=== PATIENT | female | born 2005 | race Caucasian/White ===

== ENCOUNTER 2024-09-28 09:46 | Emergency (ER) | payer MEDICAID, SELFPAY ==
[2024-09-28 10:22] VITALS: BP 98/61; PULSE 76; RESP 18; TEMP 36.9; O2SAT 100; BMI 30.4
--- NOTE | 2024-09-28 12:01 | XR_ITS ---
Examination: PA lateral chest 2 views Technique: Upright PA lateral chest 2 views Exam date and time: September 28, 2024 1240 hrs. Indications: Dizziness episodes with syncope today Findings: Normal heart size Lungs are clear. The osseous structures are intact Impression: No active disease, no aspiration pneumonia
--- NOTE | 2024-09-28 12:01 | EKG_ITS ---
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
--- NOTE | 2024-09-28 12:01 | XR_ITS ---
Examination: CT brain head without contrast. 2-D sagittal coronal reconstructions Date and time of exam:September 28, 2024 at 12:29 PM Indications: Patient fell this morning with injury to the head, followed by head pain dizziness CTDI: vol (mGy):47.2 DLP: (mGycm):908 Technique: Multiple CT axial sections of the brain have been obtained, 5 mm slice thickness. Contrast has not been administered. 2-D sagittal, coronal reconstructions have been obtained Low dose protocols were performed. One or more of the following dose reduction techniques were used; automated exposure control, adjustment of the mA and/or KV according to patient size, use of iterative reconstruction technique. Findings: No significant ventricular enlargement. Intra-axial or extra-axial hemorrhage density is not seen. No mass effect or midline shift Basal cisterns are not remarkable. Fourth ventricle is midline. Cranial vault intact. Impression: Negative for acute hemorrhage, mass effect or midline shift Advise clinical correlation and follow-up accordingly
--- NOTE | 2024-09-28 12:01 | XR_ITS ---
Examination: Shoulder,left, 3 views Technique: Shoulder AP internal rotation, AP external rotation, Y view shoulder, 3 views Exam date and time :September 28, 2024 1240 hrs. Indications: Injury to the shoulder today, shoulder pain Findings: No shoulder fracture or dislocation No opaque foreign body Impression: No shoulder fracture or dislocation
--- NOTE | 2024-09-28 12:03 | EDRME_ITS ---
Rapid Medical Screening Exam [facility] Arrival date/time: 09/28/24 09:46 This is a 19-year-old female that comes in with complaints of dizziness and syncopal episode that happened prior to arrival. Patient was brought in by ambulance per patient she had just finished eating cereal. And stood up and felt dizzy. Patient states that she was found on the floor by mother. Per patient she was out for 10 seconds. Patient has some shortness of breath at this time and complains of left shoulder pain. Patient denies fever, vomiting, diarrhea, abdominal pain. Patient states she feels a little nauseous and a little dizzy at this time. Patient has a history of elbow surgery and has been told her blood pressure is on the higher side. I have greeted and performed a focused initial assessment of this patient. Initial appropriate labs ordered at this time. A comprehensive ED assessment and evaluation of the patient and analysis of all test and completion of medical decision making process will be conducted by additional ED provider. Chief Complaint: Syncope / Near Syncope Time Seen by Provider: 09/28/24 11:57 Vital signs: Vital Signs Temperature 98.5 F 09/28/24 10:22 Pulse Rate 76 09/28/24 10:22 Respiratory Rate 18 09/28/24 10:22 Blood Pressure 98/61 09/28/24 10:22 Pulse Oximetry (%) 100 09/28/24 10:22 Oxygen Delivery Method Room Air 09/28/24 10:22
[2024-09-28 14:10] LABS: Basophils # (Auto) 0.1 Thou/mm3 (0.0-0.2); Basophils % (Auto) 1 % (0-2.5); Eosinophils % (Auto) 0 % (0-10); Hematocrit 46.2 % (36.0-46.0); Hemoglobin 15.3 g/dL (12.0-16.0); Immature Granulocytes % (Auto) 0 % (0-0); Immature Granulocytes Auto 0.02 Thou/mm3 (0.00-0.00); Lymphocytes # (Auto) 1.5 Thou/mm3 (1.0-4.8); Lymphocytes % (Auto) 13 % (10-50); Mean Corpuscular HGB Conc 33.1 g/dl (31.0-37.0); Mean Corpuscular Hemoglobin 30.1 pg (25.0-35.0); Mean Corpuscular Volume 91 fL (80-100); Monocytes # (Auto) 0.6 Thou/mm3 (0.0-0.8); Monocytes % (Auto) 6 % (0-12); Neutrophils # (Auto) 8.9 Thou/mm3 (1.8-7.7); Neutrophils % (Auto) 80 % (37-80); Nucleated Red Blood Cell % 0 /100 WBC (0); Platelet Count 298 Thou/mm3 (140-440); RDW Standard Deviation 41.9 fL (36.4-46.3); Red Blood Count 5.09 Miln/mm3 (4.00-5.20); White Blood Count 11.1 Thou/mm3 (3.6-11.0)
[2024-09-28 14:16] LABS: B-Type Natriuretic Peptide 27 pg/mL (0-100)
[2024-09-28 14:29] LABS: Alanine Aminotransferase 41 U/L (10-49); Albumin, Serum 4.9 gm/dL (3.5-5.0); Albumin/Globulin Ratio 1.8 (1.2-2.2); Alkaline Phosphatase 46 U/L (46-116); Anion Gap 7 (7-16); Aspartate Amino Transferase 23 U/L (0-34); BUN/Creatinine Ratio 10 Ratio (12-20); Bilirubin,Total 0.5 mg/dL (0.3-1.2); Blood Urea Nitrogen 10 mg/dL (9-23); Calcium 10.4 mg/dL (8.3-10.6); Calcium (Corrected) 10.4 mg/dL (8.5-10.1); Carbon Dioxide 29.3 mMol/L (20.0-31.0); Chloride 105 mMol/L (98-107); Estimated Creatinine Clearance 104.8 mL/min (>60); Globulin 2.8 gm/dL (2.3-3.5); Glucose 91 mg/dL (74-106); Osmolality,Calculated 280 (275-295); Potassium 4.3 mMol/L (3.4-5.1); Sodium 141 mMol/L (136-145); Total Protein 7.7 gm/dL (5.7-8.2); Troponin I < 0.002 ng/mL (0.0-0.045); eGFR > 60 See Note
--- NOTE | 2024-09-28 14:51 | PC.NURSE ---
na in lobby when called
[2024-09-28 15:20] LABS: Collection Type, Urine Voided
[2024-09-28 15:40] LABS: Bilirubin,Urine Negative (Negative); Blood,Urine Negative (Negative); Clarity,Urine Clear (Clear/Hazy); Color,Urine Lt-Yellow (Lt Yel-Yel); Glucose, Urine Negative (Negative); Ketones,Urine Negative (Negative); Leukocyte Esterase,Urine Negative (Negative); Nitrite,Urine Negative (Negative); Protein,Urine Negative (Neg - Trace); RBC,Urine 2 /hpf (0-3); Specific Gravity,Urine 1.016 (1.001-1.035); Squamous Epithelial Cell,Urine 1 /hpf (0-5); Urobilinogen,Urine Negative mg/dL (0.0-1.0); WBC,Urine 1 /hpf (0-5)
--- NOTE | 2024-09-28 15:43 | PC.NURSE ---
NA x2 in lobby
== END 2024-09-28 16:01 | disposition left against medical advice (07) ==
PROVIDERS: Nurse Practitioner Family; Emergency Provider Emergency Medicine
DX: R55 Syncope and collapse (principal); R06.02 Shortness of breath; M25.512 Pain in left shoulder; Z53.29 Procedure and treatment not carried out because of patient's decision for other reasons
CPT/HCPCS: 36415; 70450; 71046; 73030; 80053; 81001; 83880; 84484; 85025; 87086; 93005; 99281

== ENCOUNTER 2024-10-18 12:59 | Emergency (ER) | payer MEDICAID, SELFPAY ==
[2024-10-18 13:01] VITALS: BP 112/71; PULSE 63; RESP 16; TEMP 36.4; O2SAT 100; BMI 30.4
[2024-10-18 13:26] VITALS: PULSE 69; RESP 17; O2SAT 98; BMI 27.1
--- NOTE | 2024-10-18 14:38 | EKG_ITS ---
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
[2024-10-18 15:02] VITALS: BP 106/64; PULSE 68; RESP 18; TEMP 37.1; O2SAT 100
--- NOTE | 2024-10-18 15:36 | EDNOTE_ITS ---
ED Seizures RME/HPI General Chief Complaint: Seizure Stated Complaint: SIEZURE Time Seen by Provider: 10/18/24 14:27 Arrival date/time: 10/18/24 12:59 RME / HPI RME / HPI Narrative: 19 year old female presents to the ED BIBA from home for evaluation of seizure today. Per medics report, the seizure was witnessed by family and reported only the right arm was twitching. Patient denies any history of seizures or similar presentation. Denies fevers, pain, bladder or bowel loss. No recent illnes. Related Data Allergies Allergy/AdvReac Type Severity Reaction Status Date / Time No Known Allergies Allergy Verified 09/28/24 09:59 Review of Systems Review of Systems Narrative Review of Systems: Gen: No fever, no chills, no weight loss EYES: No discharge, no visual changes, no pain HEENT: No ear pain, no congestion, no sore throat PULM: no shortness of breath, no cough, no congestion CV: No chest pain, no dyspnea on exertion, no palpitations, no chest tightness GI: No nausea, no vomiting, no diarrhea, no pain, no constipation : No frequency, no urgency,? no dysuria Musc/skel: No joint pain, no back pain Skin: No rash, no ecchymosis, no lesions Psyc: No hallucinations, no depression Heme/Lymph: No easy bleeding or bruising tendencies Neuro: No weakness, no headache, +new onset seizure Past Medical History Past Medical History CARDIAC: Negative Congestive Heart Failure RESPIRATORY: Negative Chronic Obstructive Pulmonary Disease (COPD) GENITOURINARY: Negative Renal Disease ENDOCRINE: Negative Diabetes Mellitus Type 1 or Diabetes Mellitus Type 2 Social History SMOKING STATUS: Current some day smoker ED Exam Narrative Physical exam: GENERAL APPEARANCE: No obvious distress, nontoxic appearing. HEENT: NC, AT. MMM. EOMI, clear conjunctiva, oropharynx clear. NECK: Supple without lymphadenopathy. No stiffness or restricted ROM. HEART: Normal rate and regular rhythm, normal S1/S1, no m/r/g LUNGS: CTAB, moving air well. No crackles or wheezes are heard. ABDOMEN: Soft, nontender, nondistended with good bowel sounds heard. BACK: No midline C/T/L spine pain or deformity, No CVAT, no obvious deformity. EXTREMITIES: Without cyanosis, clubbing or edema. MUSCULOSKELETAL: FROM of all major joints, no chest tenderness NEUROLOGICAL: On initial examination the patient was postictal, groggy. On reassessment at 16:50 hours the neuro exam is grossly nonfocal, moving all 4 extremities. CN not formally tested but appear grossly intact. Skin: Warm and dry without any rash. Course Quality Measures none Orders Category Date Time Status EKG (ED ONLY) *Do not use* NOW Care 10/18/24 14:38 Completed EKG (ED Only) Stat Exams 10/18/24 14:38 Ordered CBC Stat Lab 10/18/24 15:32 Completed CMP [Comprehensive Metabolic Panel] Stat Lab 10/18/24 15:32 Completed Reevaluation(s) Reevaluation #1: On reassessment the patient is awake and answering questions. We reviewed all the results, analysis, and treatment plans. Patient is amenable to discharge. Strict return precautions were outlined. Patient was discharged in stable condition. Time: 16:50 Vital Signs Vital signs: Vital Signs Temperature 97.5 F 10/18/24 13:01 Pulse Rate 63 10/18/24 13:01 Respiratory Rate 16 10/18/24 13:01 Blood Pressure 112/71 10/18/24 13:01 Pulse Oximetry (%) 100 10/18/24 13:01 Oxygen Delivery Method Nasal Cannula 10/18/24 13:01 Oxygen Flow Rate 2 10/18/24 13:01 Pulse ox is 98% on room air which is adequate. Seizure MDM Narrative MDM Narrative:: Sindy Fabian am scribing for and in the presence of Dr. Galvan. Patient data External records reviewed:: [facility] previous records (I reviewed ED visit on 09/28/2024 for syncopal episode) and EMS form Clinical information provided by:: patient and EMS Social determinants that could affect healthcare access:: none Patient has the following chronic illnesses:: No chronic medical hx reported How is presenting disease/condition affected by chronic disease/condition?: no chronic disease Evaluation data The following diagnostics were reviewed and interpreted by me:: lab results and EKG tracing(s) (Sinus rhythm rate 66, normal axis, normal intervals, no acute ST changes, no STEMI. ) Lab and/or radiology exams considered but not ordered:: None Interpretation Summary: As noted above Medications / Prescriptions Medications or Prescriptions considered but not ordered:: None Medication administrations:: None Consultations Consultation(s) initiated? (list below): No Diagnosis Seizure Differential Diagnosis: intractable seizure disorder, focal seizure, generalized seizure, new onset seizure and epileptic seizure Most likely diagnosis given after review of the tests above:: New onset seizure Admission Indicated Admission indicated?: not indicated Admission Request Was there a request for admission?: No Disposition Plan Disposition Plan: Discharge Discharge Attestation Discharge Attestation: The patient and all family members were given an opportunity to ask questions and understood the discharge instructions. Discharge instructions specifically effects, indications for sooner follow up or return to the emergency department, and the expected course of current diagnosis. Patient condition: Stable Discharge Plan Plan Patient Disposition: HOME (Self Care) Problem List Clinical Impression: New onset seizure Patient/Caregiver Discharge Instructions Education Materials: ED Seizure New Onset Unknown ... Additional Instructions: Follow-up with your primary care doctor in 2 to 3 days for recheck. You can return to the emergency department sooner if symptoms worsen or if you notice any new, concerning issues. Print Language: Egyptian Stand Alone Forms: [employer] Award Info., Patient Portal Info Letter
[2024-10-18 15:54] LABS: Basophils # (Auto) 0.1 Thou/mm3 (0.0-0.2); Basophils % (Auto) 1 % (0-2.5); Eosinophils % (Auto) 0 % (0-10); Hematocrit 45.8 % (36.0-46.0); Hemoglobin 15.6 g/dL (12.0-16.0); Immature Granulocytes % (Auto) 0 % (0-0); Immature Granulocytes Auto 0.04 Thou/mm3 (0.00-0.00); Lymphocytes # (Auto) 1.1 Thou/mm3 (1.0-4.8); Lymphocytes % (Auto) 8 % (10-50); Mean Corpuscular HGB Conc 34.1 g/dl (31.0-37.0); Mean Corpuscular Hemoglobin 30.2 pg (25.0-35.0); Mean Corpuscular Volume 89 fL (80-100); Monocytes # (Auto) 0.7 Thou/mm3 (0.0-0.8); Monocytes % (Auto) 5 % (0-12); Neutrophils # (Auto) 12.4 Thou/mm3 (1.8-7.7); Neutrophils % (Auto) 87 % (37-80); Nucleated Red Blood Cell % 0 /100 WBC (0); Platelet Count 312 Thou/mm3 (140-440); RDW Standard Deviation 41.4 fL (36.4-46.3); Red Blood Count 5.16 Miln/mm3 (4.00-5.20); White Blood Count 14.3 Thou/mm3 (3.6-11.0)
[2024-10-18 16:15] LABS: Alanine Aminotransferase 22 U/L (10-49); Albumin, Serum 5.3 gm/dL (3.5-5.0); Albumin/Globulin Ratio 1.7 (1.2-2.2); Alkaline Phosphatase 46 U/L (46-116); Anion Gap 9 (7-16); Aspartate Amino Transferase 12 U/L (0-34); BUN/Creatinine Ratio 10 Ratio (12-20); Bilirubin,Total 1.2 mg/dL (0.3-1.2); Blood Urea Nitrogen 10 mg/dL (9-23); Calcium 10.4 mg/dL (8.3-10.6); Calcium (Corrected) 10.4 mg/dL (8.5-10.1); Carbon Dioxide 25.8 mMol/L (20.0-31.0); Chloride 106 mMol/L (98-107); Estimated Creatinine Clearance 112.6 mL/min (>60); Globulin 3.1 gm/dL (2.3-3.5); Glucose 89 mg/dL (74-106); Osmolality,Calculated 279 (275-295); Potassium 4.1 mMol/L (3.4-5.1); Sodium 141 mMol/L (136-145); Total Protein 8.4 gm/dL (5.7-8.2); eGFR > 60 See Note
[2024-10-18 17:02] VITALS: BP 110/61; PULSE 78; RESP 114; TEMP 36.8; O2SAT 100
[2024-10-18 17:05] VITALS: BP 110/61; PULSE 82; RESP 17; TEMP 36.8; O2SAT 100
== END 2024-10-18 17:05 | disposition home or self-care (01) ==
LOC: SERX 17:00
PROVIDERS: Emergency Provider Emergency Medicine
DX: R56.9 Unspecified convulsions (principal)
CPT/HCPCS: 36415; 80053; 85025; 93005; 99283